=== PATIENT | female | born 1950 | race Caucasian/White ===

== ENCOUNTER → 2017-08-26 13:50 | Outpatient (CLI) | payer MEDICARE ==
[2016-07-09 08:42] VITALS: BMI 22.9
[~2017-08-26 13:50] MED LIST: ALTACE10 MG PO; COUMADIN5 MG PO; GLUCOPHAGE500 MG PO; HYDROCODON-ACE1 EAC7 PO; NORVASC5 MG PO; PRAVASTATIN SOD10 MG PO; TOPAMAX25 MG PO
== END | disposition home or self-care (01) ==
LOC: D.MAMMO 09:45
DX: Z12.31 Encounter for screening mammogram for malignant neoplasm of breast (principal)

== ENCOUNTER → 2017-09-15 16:11 | Outpatient (CLI) | payer MEDICARE ==
[2016-07-09 08:42] VITALS: BMI 22.9
== END | disposition home or self-care (01) ==
LOC: D.MAMMO 14:00
DX: R92.8 Other abnormal and inconclusive findings on diagnostic imaging of breast (principal)

== ENCOUNTER → 2017-12-07 09:46 | Outpatient (CLI) | payer MEDICARE ==
[2016-07-09 08:42] VITALS: BMI 22.9
== END | disposition home or self-care (01) ==
LOC: D.RAD 09:46
DX: M17.11 Unilateral primary osteoarthritis, right knee (principal); M25.461 Effusion, right knee

== ENCOUNTER → 2017-12-27 08:44 | Outpatient (CLI) | payer MEDICARE ==
[2016-07-09 08:42] VITALS: BMI 22.9
== END | disposition home or self-care (01) ==
LOC: D.MRI 12-22 15:00
DX: M25.561 Pain in right knee (principal); M23.51 Chronic instability of knee, right knee

== ENCOUNTER → 2018-05-17 07:38 | Outpatient (CLI) | payer MEDICARE ==
[2016-07-09 08:42] VITALS: BMI 22.9
== END | disposition home or self-care (01) ==
LOC: D.CT 07:38
DX: R31.9 Hematuria, unspecified (principal); R10.9 Unspecified abdominal pain

== ENCOUNTER → 2019-07-17 09:40 | Outpatient (CLI) | payer MEDICARE ==
[2016-07-09 08:42] VITALS: BMI 22.9
--- NOTE | 2019-07-25 11:09 | ST ---
PATIENT:LEROY ORDAZ MEDICAL RECORD: [id number] SEX: F LOCATION:[facility] ORDER #: ADMISSION DATE: 07/17/19 AGE OF PATIENT: 69 REFERRING PHYSICIAN: INTERPRETING PHYSICIAN: YENY BARTHOLOMEW MD DATE OF SERVICE: 07/17/2019 PROCEDURE: Nuclear stress test. INDICATION: Angina, abnormal ECG, hypertension, diabetes. TECHNIQUE: He was exercised on standard Lexiscan protocol with 32 mCi of sestamibi injected at peak stress, 11 mCi used previously for rest images. FINDINGS: Gated SPECT reveals preserved ejection fraction at 75% with good wall motion and thickening and brightening throughout all segments. SPECT imaging Cardiolite was used as myocardial fusion agent. There is homogeneous uptake throughout all segments at rest and stress with no evidence of inducible ischemia or previous infarction. OVERALL IMPRESSION: 1. This is a normal nuclear stress test with no evidence of inducible ischemia or previous infarction. 2. Gated SPECT reveals a preserved ejection fraction at 75%. In this patient with ongoing symptomatology, the current scan does not suggest the presence of hemodynamically significant coronary artery disease. Evaluate noncardiac etiology of chest pain. TRANSINT:[id number] Voice Confirmation ID: [id number] DOCUMENT ID: [id number] YENY BARTHOLOMEW MD at 1109 CC: HUSAM KING [id number] DICTATION DATE: 07/18/19 1636 CLINICAL TEAM MANAGER: 07/18/19 2302 DEP CLI 07/17/19 [facility] [address] [place] [address]
--- NOTE | 2019-07-27 08:42 | EC ---
PATIENT:LEROY ORDAZ DATE OF SERVICE: 07/17/19 SEX: F MEDICAL RECORD: [id number] DATE OF : 54 [facility] AGE OF PATIENT: 69 ADMISSION DATE: 07/17/19 REFERRING PHYSICIAN: INTERPRETING PHYSICIAN: KIRK BARBOSA MD ECHOCARDIOGRAM REPORT ECHO CHARGES 4 ECHO COMPLETE Date: 07/17/19 CLINICAL DIAGNOSIS: ANGINA/ABNORMAL EKG H/O A-FIB/CVA/HTN ECHOCARDIOGRAPHIC MEASUREMENTS (adult normal given) AC root (d.<3.7cm) 2.7 cm LV Septum d (<1.2 cm> 1.2 cm Valve Excursion 1.8 cm LV Septum (systole) 1.7 cm Left Atria (s.<4.0cm> 2.9 cm LVPW d(<1.2cm) 1.2 cm RV (d.<2.3cm) 1.9 cm LVPW (sytole) 1.8 cm LV diastole(<5.6CM) 5.2 cm MV E-F(>70mm/sec) cm LV systole 2.9 cm LVOT Diameter 1.7 cm MV exc.(>10mm) cm Est.ejection fraction (50-75%) % DOPPLER: LVIT cm/sec A 161 cm/sec E 96.0 cm/sec LA cm/sec RVSP 29.0 mmHg LVOT 94.0 cm/sec AOP1/2T m/s Asc. 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 Seymour TAPE# PACS Pericardial Effusion N DATE OF SERVICE: Adequate 2D, color flow, spectral Doppler, and M-Mode. Borderline LVH. LV internal dimensions are normal. Wall motion is normal. EF is greater than or equal to 55%. Aortic valve is tricuspid. No evidence of stenosis by Doppler interrogation. Left atrium normal at 3.9 cm. Mitral valve shows no prolapse. Trace MR. Right-sided chambers are grossly normal. Trace TR. TRANSINT:[id number] Voice Confirmation ID: [id number] DOCUMENT ID: [id number] ECHOCARDIOGRAM REPORT [id number] LEROY ORDAZ GREGORY A MD at 0842 CC: [id number] DICTATION DATE: 07/18/19 1307 INFORMATION SECURITY RISK ANALYST: 07/18/19 1351 DEP CLI 07/17/19 [place] [id number] [place] [id number]
== END | disposition home or self-care (01) ==
LOC: D.HCCARDIO 09:40
PROVIDERS: ATTEND Internal Medicine Interventional Cardiology
DX: I20.9 Angina pectoris, unspecified (principal)

== ENCOUNTER → 2019-10-31 13:31 | Outpatient (CLI) | payer MEDICARE ==
[2016-07-09 08:42] VITALS: BMI 22.9
[2019-10-31 14:06] LABS: BASOPHILS 0.3 % (0-2); EOSINOPHILS 1.9 % (0-7); IMMATURE GRANULOCYTES 0.3 % (0-5); LYMPHOCYTES 21.3 % (15-50); MCH 28.2 pg (26.0-34.0); MCHC 32.4 g/dL (31.0-37.0); MCV 87.1 fL (80.0-100.0); MEAN PLATELET VOLUME 9.5 fL (7.4-10.4); NEUTROPHILS 65.2 % (40-80); PLATELET COUNT 210 10x3/uL (130-400); RBC 4.25 10x6/uL (4.00-5.40); RDW 14.5 % (11.5-14.5); WBC 6.3 10x3/uL (4.8-10.8)
== END | disposition home or self-care (01) ==
LOC: D.LAB 13:31
PROVIDERS: ATTEND Internal Medicine Gastroenterology
DX: R19.5 Other fecal abnormalities (principal); R10.13 Epigastric pain; K92.1 Melena; R10.33 Periumbilical pain; R63.0 Anorexia

== ENCOUNTER 2020-04-10 06:14 | Day surgery (SDC) | payer MEDICARE ==
[~2020-04-10] VITALS: Ht 157.5 cm; Wt 65.0 kg
[2020-04-10 06:31] LABS: HEMATOCRIT 40.1 % (36.0-48.0); HEMOGLOBIN 12.8 g/dL (12-16); MCH 28.3 pg (26.0-34.0); MCHC 31.9 g/dL (31.0-37.0); MCV 88.7 fL (80.0-100.0); MEAN PLATELET VOLUME 9.3 fL (7.4-10.4); RBC 4.52 10x6/uL (4.00-5.40); RDW 14.1 % (11.5-14.5); WBC 4.7 10x3/uL (4.8-10.8)
[2020-04-10 06:43] LABS: ANION GAP 14.4 mmol/L (8-16); CALCIUM 8.6 mg/dL (8.5-10.1); CARBON DIOXIDE 21.6 mmol/L (21.0-32.0); CREATININE - SERUM 1.3 mg/dL (0.6-1.3)
[2020-04-10 07:08] LABS: APTT 36.3 SECONDS (22.8-39.4)
[2020-04-10 07:11] LABS: INR 1.19 (0.85-1.17); PROTIME 15.1 SECONDS (11.6-15.0)
[2020-04-10] MEDS ORDERED: DILTIAZEM 24HR240 M4 PO (07:33)
[2020-04-10] MEDS ORDERED: COUMADIN2.5 MG PO (07:33)
[2020-04-10] MEDS ORDERED: PROTONIX40 MG PO (07:34)
[2020-04-10 07:37] VITALS: Ht 157.5 cm; Wt 65.0 kg
--- NOTE | 2020-04-10 09:36 | NUR ---
0835-RECD FROM GI LAB. ALERT. LEFT SIDE WEAK FROM CVA. IN A FIB AT END OF PROCEDURE. 0845-TAKING LIQUIDS WITHOUT NAUSEA 0850-EKG REPEATED 0900-ORDERS RECD FROM DR BARBOSA.
--- NOTE | 2020-04-10 10:06 | NUR ---
0940-IV D/C, ASSISTED TO DRESS AND DISCHARGE INSTRUCTIONS REVIEWED. 1000-D/C HOME VIA PERSONAL WHEELCHAIR. DISCHARGE INSTRUCTIONS REVIEWED WITH .
--- NOTE | 2020-04-12 10:07 | OP ---
PATIENT NAME: LEROY ORDAZ MEDICAL RECORD: [id number] :54 LOCATION:[facility] ADMISSION DATE: SURGEON: JONELLE RENTERIA DO DATE OF OPERATION: 04/10/2020 PROCEDURE: EGD with biopsies. INDICATIONS FOR PROCEDURE: Epigastric pain, melena, decrease in appetite. SCOPE: Olympus video gastroscope. MEDICATIONS: Propofol 220 mg IV per anesthesia. ESTIMATED BLOOD LOSS: Minimal. COMPLICATIONS: None. FINDINGS: Informed consent was given. The patient was made comfortable with the above medication. After reaching an adequate level of sedation by slow IV push, the patient was placed on her left side. The endoscope was advanced under direct visualization through the mouth to the second portion of the duodenum with ease. The entire esophagus appeared normal to the GE junction. At the GE junction, there were minor changes consistent with LA class A reflux-induced esophagitis. The endoscope was advanced beyond the GE junction into the stomach and retroflexed to view the cardia, where a very small sliding hiatal hernia was present. The fundus appeared normal. In the body as well as the antrum and prepyloric regions of the stomach, there were changes of granularity and erythema consistent with mild chronic gastritis. Cold forceps biopsies were taken from the antrum and incisura to submit for histopathology and to rule out the presence of H. pylori. The endoscope was advanced beyond the pylorus into the duodenum, which appeared normal to the second portion. Cold forceps biopsies were taken randomly in the duodenum to submit for histopathology. The endoscope was withdrawn from the patient. The patient tolerated the procedure well and there were no complications. IMPRESSION: 1. LA class A reflux-induced esophagitis. 2. Small sliding hiatal hernia. 3. Mild chronic gastritis changes. PLAN AND RECOMMENDATIONS: 1. Discharge home when recovery parameters are met. 2. Follow up biopsy specimen results. 3. GERD diet and reflux precautions. 4. Continue current medications including pantoprazole 40 mg daily. 5. I will set the patient up for a gastric emptying scan to rule out gastroparesis based on her symptoms and we will proceed with a colonoscopy as scheduled. Random biopsies will be taken at the time of the colonoscopy. If all of these are negative and above workup is negative, we will consider evaluating the gallbladder, but this does not sound like gallbladder pathology. 6. Follow up in GI clinic in 4-6 weeks or after colonoscopy. TRANSINT:[id number] Voice Confirmation ID: [id number] DOCUMENT ID: [id number] OPERATIVE REPORT [id number] LEROY ORDAZ NATHAN A DO at [facility] CC: [id number] DICTATION DATE: 04/10/20825 INFORMIX DEVELOPER: 04/10/20 1005 [facility] 04/10/20 [place] [id number] [place] [id number]
== END 2020-04-10 10:00 | disposition home or self-care (01) ==
LOC: D.OPS 06:14
PROVIDERS: Anesthesiology; ATTEND Internal Medicine Gastroenterology
DX: R10.13 Epigastric pain (principal); K92.1 Melena; Z86.73 Personal history of transient ischemic attack (TIA), and cerebral infarction without residual deficits; N28.9 Disorder of kidney and ureter, unspecified

== ENCOUNTER → 2020-04-18 09:23 | Outpatient (CLI) | payer MEDICARE ==
[2020-04-10 07:37] VITALS: BMI 26.2
[~2020-04-18 09:23] MED LIST changes: +COUMADIN2.5 MG PO; +DILTIAZEM 24HR240 M4 PO; +PROTONIX40 MG PO
== END | disposition home or self-care (01) ==
LOC: D.NM 09:00
PROVIDERS: ATTEND Internal Medicine Gastroenterology
DX: R10.9 Unspecified abdominal pain (principal); R63.0 Anorexia

== ENCOUNTER 2020-06-14 07:35 | Day surgery (SDC) | payer MEDICARE ==
[~2020-06-14] VITALS: Ht 157.5 cm; Wt 65.0 kg
[2020-06-14 08:04] LABS: ANION GAP 18.7 mmol/L (8-16); CALCIUM 8.6 mg/dL (8.5-10.1); CARBON DIOXIDE 19.3 mmol/L (21.0-32.0); CREATININE - SERUM 1.6 mg/dL (0.6-1.3)
[2020-06-14 08:09] LABS: HEMOGLOBIN 13.5 g/dL (12-16); LYMPHOCYTES 30.6 % (15-50); MCH 28.7 pg (26.0-34.0); MCHC 32.9 g/dL (31.0-37.0); MCV 87.2 fL (80.0-100.0); MEAN PLATELET VOLUME 9.5 fL (7.4-10.4); NEUTROPHILS 58.1 % (40-80); PLATELET COUNT 239 10x3/uL (130-400); RDW 13.8 % (11.5-14.5); WBC 4.6 10x3/uL (4.8-10.8)
[2020-06-14 08:32] VITALS: Ht 157.5 cm; Wt 65.0 kg
[2020-06-14 09:03] LABS: INR 1.14 (0.85-1.17); PROTIME 14.5 SECONDS (11.6-15.0)
--- NOTE | 2020-06-14 11:16 | NUR ---
1047 IV DC'D. CATHETER TIP INTACT. NO BLEEDING AT SITE. BANDAID APPLIED. DISCHARGE INSTRUCTIONS REVIEWED WITH PT AND HER BOTH OF WHOM VOICED UNDERSTANDING OF INSTRUCTIONS.
--- NOTE | 2020-06-17 11:44 | OP ---
PATIENT NAME: LEROY ORDAZ MEDICAL RECORD: [id number] :54 LOCATION:[facility] ADMISSION DATE: SURGEON: JONELLE RENTERIA DO DATE OF OPERATION: 06/14/2020 PROCEDURE: Colonoscopy with polypectomy and biopsies. INDICATIONS FOR PROCEDURE: Change in stool caliber, periumbilical abdominal pain, decrease in appetite. SCOPE: Olympus video pediatric colonoscope. MEDICATIONS: Propofol 400 mg IV per anesthesia. WITHDRAWAL TIME: 16 minutes. ESTIMATED BLOOD LOSS: Minimal. COMPLICATIONS: None. FINDINGS: Informed consent was given. The patient was made comfortable with the above medication. After reaching an adequate level of sedation by slow IV push, the patient was placed on her left side. A digital rectal examination was performed and it was normal. The endoscope was advanced under direct visualization through the rectum to the cecum, confirmed by the presence of the appendiceal orifice and ileocecal valve. The endoscope was slowly withdrawn and the mucosa was carefully examined. The prep quality was fair. There were 4 polyps visualized on today's examination. Three were located in the descending colon. They were all benign appearing and sessile and ranged in size from 3-4 mm in diameter. The largest was removed using a hot snare and the other 2 were removed using hot forceps. In the ascending colon, there was 1 benign appearing sessile polyp, which measured approximately 3-4 mm in diameter. It was removed using hot snare. Retroflexion was performed in the rectum with visualization of grade I internal hemorrhoids without bleeding. During the procedure, random biopsies were taken throughout the colon to submit for histopathology and to rule out the presence of microscopic colitis. The endoscope was withdrawn from the patient. The patient tolerated the procedure well and there were no complications. IMPRESSION: 1. Four polyps as described above, removed using a combination of a hot snare and hot forceps. 2. Grade I internal hemorrhoids without bleeding. PLAN AND RECOMMENDATIONS: 1. Discharge home when recovery parameters are met. 2. Follow up biopsy specimen results. 3. High fiber diet. 4. Continue current medications. 5. Follow up in GI clinic as scheduled. 6. Recall colonoscopy in 3-5 years. TRANSINT:[id number] Voice Confirmation ID: [id number] DOCUMENT ID: [id number] OPERATIVE REPORT [id number] LEROY ORDAZ JONELLE RENTERIA DO at 1144 CC: [id number] DICTATION DATE: 06/14/20 1006 RECREATION ATTENDANT: 06/14/20 1245 [facility] [place] 06/14/20 [facility] [address] [place] [address]
== END 2020-06-14 11:00 | disposition home or self-care (01) ==
LOC: D.OPS 07:35
PROVIDERS: Anesthesiology; ATTEND Internal Medicine Gastroenterology
DX: R19.4 Change in bowel habit (principal); R10.33 Periumbilical pain; E11.9 Type 2 diabetes mellitus without complications; Z86.73 Personal history of transient ischemic attack (TIA), and cerebral infarction without residual deficits; K63.5 Polyp of colon